=== PATIENT | male | born 1985 | race African-American/Black ===

== ENCOUNTER 2022-07-02 17:05 | Emergency (ER) | payer MEDICARE ==
[~2022-07-02] VITALS: Ht 172.7 cm; Wt 83.9 kg
[2022-07-02] MEDS ORDERED: ACETAMINOPHEN 325 MG TAB PO STA (17:12)
[2022-07-02] MEDS ORDERED: PREDNISONE20 MG PO (17:48)
[2022-07-02] MEDS ORDERED: VENTOLIN HFA18 GM INH (17:48)
[2022-07-02] MEDS ORDERED: AZITHROMYCIN250 MG PO (17:48)
== END 2022-07-02 18:15 | disposition home or self-care (01) ==
LOC: ER 17:08
DX: R50.9 Fever, unspecified (principal); U07.1 COVID-19; R51.9 Headache, unspecified; R11.0 Nausea
CPT/HCPCS: 99283; U0002